=== PATIENT | male | born 1980 | race Caucasian/White ===

== ENCOUNTER 2016-12-06 23:43 | Emergency (ER) | payer MEDICARE, OTHER ==
[~2016-12-06] VITALS: Ht 165.1 cm; Wt 77.1 kg
--- NOTE | 2016-12-07 00:10 | NUR ---
To bed 8 a 35 yo male with c/o overall body pain for 2 days. Patient is aaox4, ambulatory with steady gait. Denies trauma/injury, or excessive bodily movements. No sob. Initiated comfort measures. VSS stable. Gowned. Awaiting for er md rice.
[2016-12-07] MEDS ORDERED: IBUPROFEN 600 MG TABLET PO STA (00:15)
[2016-12-07] MEDS ORDERED: IBUPROFEN 600 MG TABLET PO ONE (00:16)
--- NOTE | 2016-12-07 01:08 | NUR ---
Patient discharged to home in stable condition. Written and verbal after care instructions given. Patient verbalizes understanding of instruction. Patient is ambulatory with steady gait.
[2016-12-07 01:09] VITALS: BP 125/68
== END 2016-12-07 01:10 | disposition home or self-care (01) ==
LOC: ER 23:48
DX: M79.601 Pain in right arm (principal); M79.602 Pain in left arm
CPT/HCPCS: 71010-TC; A4606; Z7610